=== PATIENT | male | born 1980 | race Caucasian/White ===

== ENCOUNTER 2018-05-18 09:45 | Emergency (ER) | payer BC ==
--- NOTE | 2018-05-18 10:08 | Emergency Department Record ---
Anxiety - General Chief Complaint: Anxiety Stated Complaint: ANXIETY ATTACK Time Seen by Provider: 05/18/18 09:49 Source: Patient Mode of Arrival: Ambulatory Limitations: No limitations - History of Present Illness Initial Comments: 37 yo male presents with anxiety the last several days. He states he and his significant other are having relationship issues. He is anxious, poor sleep, unable to relax. No homicidal or suicidal thoughts. He states at times in the past he has experienced anxiety. He does not smoke. Occasionally uses alcohol. He has seen a therapist once last week and has an appointment tomorrow. He states his biggest issue is not being able to eat or sleep. He can not get his mind to stop racing as well. He feels safe and has a safe place to stay as he is from his and children at this time. MD Complaint: Anxiety -: Days(s) Symptoms: Dyspnea Place: Home Severity: Moderate Quality: Constant Provoking factors: Emotional stress, Other Improves With: Nothing Worsens With: Thinking about event Associated symptoms: Anorexia, Shortness of breath, Other (trouble sleeping) - Related Data Home Medications: Previous Rx's Medication Instructions Recorded Ondansetron [Zofran Odt] 4 mg PO Q8H #20 tab.rapdis 05/18/18 Allergies/Adverse Reactions: Allergies Allergy/AdvReac Type Severity Reaction Status Date / Time No Known Drug Allergies Allergy Verified 05/18/18 10:05 Review of Systems Constitutional: Denies: Chills, Fever, Malaise Eyes: Denies: Eye discharge ENT: Denies: Congestion, Throat pain Respiratory: Denies: Cough, Dyspnea Cardiovascular: Denies: Chest pain, Palpitations, Syncope Endocrine: Denies: Fatigue Gastrointestinal: Denies: Abdominal pain, Diarrhea, Nausea, Vomiting Genitourinary: Denies: Dysuria Musculoskeletal: Denies: Arthralgia, Myalgia Skin: Denies: Bruising, Rash Neurological: Denies: Headache, Weakness Psychiatric: Reports: Anxiety, Depression. Denies: Auditory hallucinations, Homicidal thoughts, Suicidal thoughts, Visual hallucinations Hematological/Lymphatic: Denies: Blood Clots, Easy bleeding, Easy bruising Physical Exam - General General Appearance: Alert, Oriented x3, Cooperative, No acute distress Limitations: No limitations - Head Head exam: Atraumatic, Normal inspection - Eye Eye exam: Normal appearance. negative: Conjunctival injection - ENT ENT exam: Normal exam Ear exam: Normal external inspection Nasal Exam: Normal inspection Mouth exam: Normal external inspection - Neck Neck exam: Normal inspection - Respiratory Respiratory exam: Normal lung sounds bilaterally - Cardiovascular Cardiovascular Exam: Regular rate, Normal rhythm, Normal heart sounds - Extremities Extremities exam: Normal inspection - Neurological Neurological exam: Alert, Normal gait, Oriented X3. negative: Altered - Skin Skin exam: Dry, Intact, Normal color, Warm Course - Reevaluation(s) Reevaluation #1: The patient was seen and examined. 05/18/18 10:09 The patient has an appointment tomorrow with his therapist again We discussed a very limited number of Xanax just for today to help him relax and calm down. He was instructed to not drive after taking the medication and no alcohol. 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 05/18/18 10:21 Disposition Disposition: Discharge Clinical Impression: Anxiety Disposition: Home, Self-Care Condition: (1) Good Instructions: Anxiety (ED) Additional Instructions: Follow up tomorrow with your therapist Do not drive within 8 hours of taking the Xanax No alcohol within 8 hours of Xanax Prescriptions: Ondansetron [Zofran Odt] 4 mg PO Q8H #20 tab.rapdis Time of Disposition: 10:27 Quality - Quality Measures Quality Measures: N/A - Blood Pressure Screening Does Patient Have Any of the Following: No Systolic Measurement: ~ Screening for High Blood Pressure: < Pre-Hypertensive BP, F/U Documented > [ [id number]] Pre-Hypertensive Follow-up Interventions: Referral to alternative/primary care provider.
[2018-05-18] MEDS ORDERED: ALPRAZOLAM 0.25 MG TABLET PO ONE ×2 (10:25→10:26)
== END 2018-05-18 10:47 | disposition home or self-care (01) ==
LOC: ER 09:45
DX: F41.9 Anxiety disorder, unspecified (principal); R06.02 Shortness of breath
CPT/HCPCS: 99282